=== PATIENT | female | born 1975 | race Caucasian/White ===

== ENCOUNTER 2017-05-18 15:52 | Emergency (ER) | payer OTHER ==
[~2017-05-18] VITALS: Ht 157.5 cm; Wt 81.2 kg
--- NOTE | ~2017-05-18 | CR21 ---
[facility] A Service of [facility] & [facility] RADIOLOGY TEXT RESULTS PATIENT: JOSE JIMENES LOCATION: CFTX : 79 UNIT #: [id number] AGE: [address]: Sandra Lazo SEX: F ORDER DR: [id number] [facility] [address] [place], [place] [address] [id number] MR#: [id number] Acc #: [id number] NAME: JOSE JIMENES : 1975 SEX: F STUDY DATE/TIME: 05/18/2017 17:09 UNIT: TX ROOM: STUDY DESCRIPTION: CR Ankle Min 3 Views Rt Attending Physician: Sandra Lazo Pa-C Ordering Physician: Sandra Lazo Pa-C Primary Care Physician: [facility] MEDICAL IMAGING REPORT This report is preliminary unless electronic signature is present EXAM Right ankle, 3 views, 05/18/2017. HISTORY Right ankle pain and swelling laterally, rolled and twisted ankle while walking yesterday. FINDINGS AP, lateral, and oblique projections of the ankle show satisfactory integrity of the joint mortise with a smooth articular surface. There is no identifiable fracture, dislocation, or radiopaque foreign body. IMPRESSION Normal ankle. Dictated by... Ricki Pimentel M.D. THIS IS AN ELECTRONICALLY VERIFIED REPORT Ricki Pimentel M.D. at 05/19/2017 2:13 PM DIRK/daly TD: 05/19/2017 09:18 JOB #: [id number] MEDICAL IMAGING REPORT Page 1 of 1 COPY
--- NOTE | ~2017-05-18 | CR127 ---
[facility] A Service of [facility] & [facility] RADIOLOGY TEXT RESULTS PATIENT: JOSE JIMENES LOCATION: CFTX : 79 UNIT #: [id number] AGE: [address]: Sandra Lazo SEX: F ORDER DR: [id number] [facility] [address] [place], [place] [address] [id number] MR#: [id number] Acc #: [id number] NAME: JOSE JIMENES : 1975 SEX: F STUDY DATE/TIME: 05/18/2017 17:05 UNIT: CFTX ROOM: STUDY DESCRIPTION: CR Foot Complete Min 3 View Rt Attending Physician: Sandra Lazo Pa-C Ordering Physician: Sandra Lazo Pa-C Primary Care Physician: [facility] MEDICAL IMAGING REPORT This report is preliminary unless electronic signature is present EXAM Right foot 3 views, 05/18/2017 HISTORY Plantar and lateral right foot pain and swelling. Rolled and twisted right foot and ankle while walking 1 day ago. FINDINGS The tarsal, metatarsal, and phalangeal elements are all anatomically normal in position and alignment. There are no articular defects. No fractures or radiopaque foreign bodies in the soft tissues are apparent. IMPRESSION Normal right foot. Dictated by... Ricki Pimentel M.D. THIS IS AN ELECTRONICALLY VERIFIED REPORT Ricki Pimentel M.D. at 05/19/2017 2:13 PM DIRK/fredy TD: 05/19/2017 09:19 JOB #: [id number] MEDICAL IMAGING REPORT Page 1 of 1 COPY
[~2017-05-18 15:52] MED LIST: FLEXERIL PO; FLEXERIL10 M1 PO; KETOPROFEN PO; LIDODERM30 EA TOP; MOBIC PO; NAPROXEN PO; PHENERGAN PO; TYLOX 5/500 CAP1 CAP PO; VICODIN 5/500 T1 TAB PO
== END 2017-05-18 18:19 | disposition home or self-care (01) ==
LOC: CED 15:52 → CFTX 15:52
DX: S93.401A Sprain of unspecified ligament of right ankle, initial encounter (principal); S93.601A Unspecified sprain of right foot, initial encounter; F17.200 Nicotine dependence, unspecified, uncomplicated; X58.XXXA Exposure to other specified factors, initial encounter; Y92.009 Unspecified place in unspecified non-institutional (private) residence as the place of occurrence of the external cause
CPT/HCPCS: 29515; 73610; 73630; 96372; 99283; J1885